=== PATIENT | male | born 1935 | race Caucasian/White ===

== ENCOUNTER 2022-11-29 11:36 | Outpatient (AMB) | payer OTHER, SELFPAY ==
--- NOTE | 2022-11-29 11:43 | A.OFFVIS_ITS ---
Intake VS Expanded 11/29/22 11:55 12/10/22 12:59 Height 5 ft 2 in 5 ft 2 in Weight 117 lb 117 lb BMI 21.4 21.4 Intake Visit Reasons: Malnutrition HPI Nutrition Presentation Details Pt presents for MNT for malnutrition. Pt was referred by PCP Zaira [place] Pt has dementia, presents in a wheelchair related to unsteadiness. Pt is accompanied by IN SERVICE COORDINATOR, Silva, who informs me that she started working with him today and has minimal information as to his eating habits. IN SERVICE COORDINATOR mentions this morning Pt ate 100% of the meal provided, Pt had scrambled eggs , hot cereal made with whole milk and coffee with flavored creamer. As per IN SERVICE COORDINATOR knowledge, shared from Pt's family members (Pt's daughter Marie): Pt has no difficulties swallowing but sometimes may refuse to eat or may forget that he has eaten . Pt typically eats rice/beans, chicken , drinks water with meals or juice or may eat root vegetables, fish and drinks water, juice snack on crackers and coffee HRG-Zevvhny-Dy.Jeor Equation Height 5 ft 2 in Weight 117 lb Resting Metabolic Rate 1101.22 Calculated Activity Level Moderate Activity Calories Needed to Maintain Weight 1706.89 Most Recent Diabetes Results: No Data to Display Assessment & Plan Assessment & Plan (1) Malnourished: Comment: REFERRING PHYSICIAN: May RECOMMEND Prescribing High protein Ensure twice a day in between meals Code(s): E46 - Unspecified protein-calorie malnutrition Plan: 53 kg - wt Est kcal needs as per MSJ: 1700 (40% carb, 30% protein/fat) Est fluid needs as per 25-30 ml/d: 1300- 1600 Est prot per day as per 1-1.2 g/kg bw: 53 -64 Recommend fiber intake : 8-10 g per day and gradually increase to 25-28 g per day for women and 35-38 g for men or as tolerated Recommend sodium intake per day : less than 2000 mg Educated patient on: ( R = reviewed V = verbalizes understanding N/R = needs review N/A = not applicable * Including protein food in meals/beverages : R * food sources of nutrient dense foods R * Differences between complex carbohydrates a simple carbohydrates, role of fiber in diet: R * Including monounsaturated fats : R Patient Instructions: Include protein sources of foods in diet - see list of nutrient dense beverages and meals , aiming at minimum of 53 g of protein Recommend prescription for high protein ensure to have once a day in addition to meals Coding Level of Care Code Nutr Indiv Intake (80045) Diagnoses Malnourished E46 Time Spent (min) 40
[2022-11-29 11:55] VITALS: BMI 21.4
[2022-12-10 12:59] VITALS: BMI 21.4
== END 2022-11-29 12:43 | disposition home or self-care (01) ==
PROVIDERS: PCP Internal Medicine; Visit Provider Dietitian, Registered
DX: E46 Unspecified protein-calorie malnutrition (principal)

== ENCOUNTER → 2022-11-29 11:36 | Outpatient (BNVA) | payer OTHER, SELFPAY | PROVIDERS: PCP Internal Medicine; Visit Provider Dietitian, Registered | DX: E46 Unspecified protein-calorie malnutrition (principal) | CPT/HCPCS: 97802 ==